=== PATIENT | male | born 1970 | race Caucasian/White ===

== ENCOUNTER 2017-12-14 08:52 | Inpatient (IN) | payer MEDICAID, MEDICARE, OTHER ==
--- NOTE | 2017-12-14 09:16 | C.PDOC ---
History Of Present Illness 47 yo male w/PMHx of bipolar, benzo abuse, transfer from [facility] after psych arranged, was accepted by . AT present time, pt AAO#3, appears comfortable, appropriate, denies nay active complaints. Time Seen by Provider: 12/14/17 08:54 Chief Complaint (Nursing): Psychiatric Evaluation History Per: Patient Past Medical History Reviewed: Historical Data, Nursing Documentation, Vital Signs Vital Signs: Last Vital Signs Temp 97.5 F L 12/15/17 06:39 Pulse 62 12/15/17 15:57 Resp 18 12/15/17 06:39 BP 102/62 12/15/17 15:57 Pulse Ox 97 12/14/17 19:04 - Medical History PMH: Bipolar Disorder, Depression Family History: States: No Known Family Hx - Social History Hx Tobacco Use: Yes Hx Alcohol Use: No Hx Substance Use: Yes - Immunization History Hx Tetanus Toxoid Vaccination: No Hx Influenza Vaccination: No Hx Pneumococcal Vaccination: No Review Of Systems Except As Marked, All Systems Reviewed And Found Negative. Constitutional: Negative for: Fever, Chills ENT: Negative for: Throat Pain Cardiovascular: Negative for: Chest Pain, Palpitations Respiratory: Negative for: Cough, Shortness of Breath, Wheezing Gastrointestinal: Negative for: Nausea, Vomiting, Abdominal Pain, Diarrhea Genitourinary: Negative for: Dysuria Musculoskeletal: Positive for: Back Pain Neurological: Negative for: Weakness, Numbness, Altered Mental Status, Headache , Dizziness Psych: Positive for: Depression, Suicidal ideation Physical Exam - Physical Exam Appears: Well, Non-toxic, No Acute Distress Skin: Normal Color, Warm, Dry, No Rash Head: Atraumatic, Normacephalic Eye(s): bilateral: PERRL Ear(s): Bilateral: Normal Nose: No Flaring, No Discharge Oral Mucosa: Moist, No Drooling Throat: No Erythema, No Drooling Neck: Trachea Midline, Supple Cardiovascular: Rhythm Regular, No Murmur, No JVD Respiratory: No Decreased Breath Sounds, No Accessory Muscle Use, No Stridor, No Wheezing Gastrointestinal/Abdominal: Soft, No Tenderness, No Distention, No Guarding Back: No CVA Tenderness Extremity: Normal ROM, No Deformity, No Swelling Neurological/Psych: Oriented x3, Normal Speech ED Course And Treatment O2 Sat by Pulse Oximetry: 97 Pulse Ox Interpretation: Normal Progress Note: On re-evaluation, pt is afebrile, hemodynamicaly stable. NOn- toxic. ENT: no acute findings. Lungs: CTA B/L, BS equal B/L. Abd: benign, (- ) guarding, (-) rebound. back: (-) CVA tenderness. Neuorlogicaly intact. Transfer papers review, including Blood work, CXR, EKG and appears normal, no acute finidngs noted. Pt is stable for admission to s/o with Dx: Depression, benzo abuse. Disposition - Disposition Disposition: HOSPITALIZED Disposition Time: 09:16 Condition: STABLE - Clinical Impression Clinical Impression: Moderate major depression, single episode, Benzodiazepine abuse
--- NOTE | 2017-12-14 11:05 | PCM.BM ---
<Sparkle Dennis - Last Filed: 12/14/17 11:03> Treatment Plan Problems - Problems identified on initial assessmt Depression Date Initiated: 12/14/17 Time Initiated: 11:03 Assessment reference: NA Status: Active Substance Abuse Date Initiated: 12/14/17 Time Initiated: 11:03 Assessment reference: NA Status: Active Treatment assets and liabiliti Patient Assests: adapts well, cooperative, educated, self-reliant, ADL independent, physically healthy, negotiates basic needs, cognitively intact Patient Liabilities: live alone (Lives with family), financial problems, substance abuse (Mara, Ecstasy), medical problems (None) - Milieu Protocol Maintain good personal hygiene: daily Encourage regular showers, daily Remind patient to perform daily oral care, daily Assist patient to perform ADL's (Self) Conduct patient checks and document Observation sheet: Q15 minutes (Yolande) Maintain personal safety: every shift Educate patient to report safety concerns to staff, every shift Monitor environment for contraband/sharps Medication safety: Monitor for expected outcome, potential side effects: every shift, Assess barriers to learning: every shift, Assess readiness for medication education: every shift <Kemi Hernández - Last Filed: 12/15/17 11:10> - Diagnosis (1) Bipolar disorder Status: Acute Interventions: 12/15/17 11:10 * Assess/adjust medications daily and /or as needed * See patient on an individual basis 7x/week to assess level of manic behaviors and stability * Discuss risks, benefits, side effects and alternatives of medications * (2) Ecstasy abuse Status: Acute Interventions: 12/15/17 11:11 * Assess 7x/week regarding severity of withdrawal * Educate regarding risks, benefits, side effects and alternatives of medications * Use Motivational Interviewing for abstinence * Use CBT for relapse prevention * Medication management for withdrawal symptoms * Encourage medication assisted treatment * <Viktoriya Hammonds - Last Filed: 12/15/17 17:22> Family Contact Family involvement: Patient does not wish Family/SO involvement Family contact: Patient declines to allow family contact at present - Goals for Treatment Patient goals for treatment: "I want to go back to my family." Discharge/Continuing Care - Education Needs Education Needs: Patient Medication, Patient Coping Skills, Patient Community resources - Discharge Discharge Criteria: Free of Suicidal thoughts, Normal sleep pattern, Ability to care for self, Reduction of target symptoms Discharge to:: Home - Treatment Team Participation Discussed with Family/SO: No Was Patient/Family/SO present at Treatment Team Meeting: Yes
--- NOTE | 2017-12-14 11:56 | PCM.PSYCH ---
Initial Psychiatric Evaluation - Initial Psychiatric Evaluation Type of Admission: Voluntary Legal Status: Capacity Chief Complaint (in patient's own words): CC: "I am hearing voices" History of Present Illness and Precipitating Events: Patient is a 47 year old male, who is unemployed, lives with his mother and brother, came to the because of depressed mood, paranoia and auditory hallucinations. Patient reports of using ecstasy pills for the past six months, which cause him to have visual hallucinations, insomnia and high energy. As per him, since past week, he is becoming increasingly paranoid and irritable. He reports of hearing voices and seeing shadows. He also reports of racing of thoughts, flight of ideas and poor concentration. He reports at times, depressed mood, feelings of hopelessness and helplessness. Patient reports depressive symptoms anhedonia, poor sleep and poor appetite. However, he denies any suicidal ideation or any homicidal ideation. PMH: Denied Current Medications: Active Medications Generic Name Dose Route Start Last Admin Trade Name Freq PRN Reason Stop Dose Admin Benztropine Mesylate 2 mg 12/14/17 11:47 Cogentin PO Q6 PRN Extra Pyramidal Symptoms Haloperidol 5 mg 12/14/17 11:47 Haldol PO Q8 PRN Moderate Agitation Pneumococcal Polyvalent Vaccine 0.5 ml 12/17/17 10:00 Pneumovax 23 Vaccine IM 12/17/17 10:01 .ONCE ONE Trazodone HCl 50 mg 12/14/17 22:00 Desyrel PO HS [facility] Past Psychiatric History - Past Psychiatric History Previous Treatment History: None Pertinent Medical Hx (Current Medical&Sleep Prob, Allergies): Allergies Allergy/AdvReac Type Severity Reaction Status Date / Time No Known Allergies Allergy Verified 12/14/17 08:58 No Known Home Med 12/14/17 Review of Systems - Review of Systems All systems: reviewed and no additional remarkable complaints except - Psychiatric Psychiatric: Anxiety, Difficulty Concentrating, Hallucinations, Irritability, Paranoia. absent: Homicidal Ideation, Suicidal Ideation Mental Status Examination - Personal Presentation Personal Presentation: Looks stated age - Affect Affect: Broad - Motor Activity Motor Activity: Psychomotor Agitation - Reliability in Providing Information Reliability in Providing Information: Poor, due to alteration in thoughts, Poor , due to altered mood - Speech Speech: Disorganized - Mood Mood: Anxious - Formal Thought Process Formal Thought Process: Hallucinations, Delusions, Paranoia, Loosening of associations - Hallucinations/Delusions Hallucinations: Visual, Auditory Delusions: Persecution - Obsessions/Compulsions Obsessions: No Compulsions: No - Cognitive Functions Orientation: Person, Place, Situation, Time Sensorium: Alert Attention/Concentration: Attentive Abstract Thinking: Shirley Estimate of Intelligence: Below average Judgement: Imparied, as evidence by: Poor judgement, Imparied, as evidence by: Lack of insight into illness - Risk Risk: Diminished functioning - Strength & Assets Inventory Strength & Assets Inventory: Family support, Cooperative DSM 5 DX - DSM 5 DSM 5 Diagnosis: 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
[2017-12-15] MEDS: Tramadol 25 mg PO PRN (21:34)
--- NOTE | 2017-12-16 13:59 | PCM.PYCHPN ---
Psychiatric Progress Note - Psychiatric Progress Note Patient seen today, length of contact: 15 min Patient Chief Complaint: CC: "I am hearing voices" Problems Identified/Issues Discussed: Patient seen and evaluated, chart reviewed and discussed with the nurse. Patient reports irritability and agitation. He reports racing of thoughts and flight of ideas and anxiety. He remained isolated and withdrawn. He reports of auditory hallucinations and persecutory delusions. However he remained calm and cooperative. He is taking medication and denies any side effects. Supportive therapy and psychoeducation were given Medication Change: Yes Medical Record Reviewed: Yes Mental Status Examination - Cognitive Function Orientation: Person, Place, Situation, Time Memory: Intact Attention: WNL Concentration: Poor Association: WNL Fund of Knowledge: Poor - Mood Mood: Anxious - Affect Affect: Broad - Speech Speech: Soft - Formal Thought Process Formal Thought Process: Hallucinations, Delusions, Paranoia, Loosening of associations - Suicidal Ideation Suicidal Ideation: No - Homicidal Ideation Homicidal Ideation: No Goal/Treatment Plan - Goal/Treatment Plan Need for Continued Stay: Severe depression anxiety, Failed transitioning Progress Toward Problem(s) and Goals/Treatment Plan: Bipolar disorder mixed severe with psychotic features -CBT -Psychoeducation -Supportive therapy, group therapy, individual therapy -Haldol 5 mg PO BID -Cogentin 1 mg PO BID -Trazodone 50 mg by mouth daily at bedtime Hallucinogen use disorder severe -Monitor signs and symptoms -Use [place] for abstinence - Smoking Cessation Smoking Cessation Initiated: No
[2017-12-16] MEDS: Divalproex 250 mg DR Tab PO SCH (18:44)
[2017-12-17] MEDS ORDERED: Pneumococcal 23-Valent Vaccine IM ONE (10:00)
[2017-12-17] MEDS: Divalproex 250 mg DR Tab PO SCH ×2 (10:08→18:22)
--- NOTE | 2017-12-17 10:37 | PCM.PYCHPN ---
Psychiatric Progress Note - Psychiatric Progress Note Patient seen today, length of contact: 15 min Patient Chief Complaint: CC: "I am felling little better.' Problems Identified/Issues Discussed: Patient seen and evaluated, chart reviewed and discussed with the nurse. Patient reports some improvement in irritability and agitation. He reports some improvement in the racing of thoughts and flight of ideas and anxiety. He remained isolated and withdrawn. He reports some improvement in the auditory hallucinations and persecutory delusions. However he remained calm and cooperative. He is taking medication and denies any side effects. Supportive therapy and psychoeducation were given Medication Change: Yes Medical Record Reviewed: Yes Mental Status Examination - Cognitive Function Orientation: Person, Place, Situation, Time Memory: Intact Attention: WNL Concentration: Poor Association: WNL Fund of Knowledge: Poor - Mood Mood: Anxious - Affect Affect: Broad - Speech Speech: Soft - Formal Thought Process Formal Thought Process: Delusions, Paranoia, Loosening of associations - Suicidal Ideation Suicidal Ideation: No - Homicidal Ideation Homicidal Ideation: No Goal/Treatment Plan - Goal/Treatment Plan Need for Continued Stay: Severe depression anxiety, Failed transitioning Progress Toward Problem(s) and Goals/Treatment Plan: Bipolar disorder mixed severe with psychotic features -CBT -Psychoeducation -Supportive therapy, group therapy, individual therapy -Haldol 5 mg PO BID -Cogentin 1 mg PO BID -Depakote 250 mg po BID -Trazodone 50 mg by mouth daily at bedtime Hallucinogen use disorder severe -Monitor signs and symptoms -Use [place] for abstinence - Smoking Cessation Smoking Cessation Initiated: No
[2017-12-17] MEDS: Tramadol 25 mg PO PRN (15:52)
[2017-12-18] MEDS: Tramadol 25 mg PO PRN ×2 (01:46→17:23)
[2017-12-18] MEDS: Divalproex 250 mg DR Tab PO SCH ×2 (10:11→17:21)
--- NOTE | 2017-12-18 13:23 | PCM.PYCHPN ---
Psychiatric Progress Note - Psychiatric Progress Note Patient seen today, length of contact: 16 min Medication Change: No Medical Record Reviewed: Yes Mental Status Examination - Cognitive Function Orientation: Person, Place, Situation, Time Memory: Intact Attention: WNL Concentration: Poor Association: WNL Fund of Knowledge: Poor - Mood Mood: Anxious - Affect Affect: Broad - Speech Speech: Soft - Formal Thought Process Formal Thought Process: Delusions, Paranoia, Loosening of associations - Suicidal Ideation Suicidal Ideation: No - Homicidal Ideation Homicidal Ideation: No Goal/Treatment Plan - Goal/Treatment Plan Need for Continued Stay: Severe depression anxiety, Failed transitioning
[2017-12-19 06:48] VITALS: RESP 18
[2017-12-19] MEDS: Divalproex 250 mg DR Tab PO SCH ×2 (09:13→17:26)
[2017-12-19] MEDS: Tramadol 25 mg PO PRN ×2 (10:43→19:50)
[2017-12-20 07:44] VITALS: BP 103/68; PULSE 61; TEMP 98.1; O2SAT 97
[2017-12-20] MEDS: Tramadol 25 mg PO PRN (08:45)
[2017-12-20] MEDS: Divalproex 250 mg DR Tab PO SCH (09:14)
--- NOTE | 2017-12-20 09:58 | PCM.PYCHDC ---
Mental Status Examination - Mental Status Examination Orientation: Person, Place, Situation, Time Memory: Intact Mood: Neutral Affect: Constricted Speech: Soft Attention: WNL Concentration: WNL Association: WNL Fund of Knowledge: WNL Formal Thought Process: No Impairment Description of patient's judgement and insight: good, fair Psychotic Thoughts and Behaviors: denies any AV Suicidal Ideation: No Current Homicidal Ideation?: No Discharge Summary - Discharge Note Reason for Hospitalization: Patient is a 47 year old male, who is unemployed, lives with his mother and brother, came to the because of depressed mood, paranoia and auditory hallucinations. Patient reports of using ecstasy pills for the past six months, which cause him to have visual hallucinations, insomnia and high energy. As per him, since past week, he is becoming increasingly paranoid and irritable. He reports of hearing voices and seeing shadows. He also reports of racing of thoughts, flight of ideas and poor concentration. He reports at times, depressed mood, feelings of hopelessness and helplessness. Patient reports depressive symptoms anhedonia, poor sleep and poor appetite. However, he denies any suicidal ideation or any homicidal ideation. Consultations:: List each consultation separately and include: 1. Reason for request. 2. Findings. 3. Follow-up Summary of Hospital Course include:: 1. Description of specific treatment plan utilized for patients during their course of treatmen. 2. Summarize the time- course for resolution of acute symptoms and/or regressed behaviors. 3. Describe issues identified and worked on during hospitalization. 4. Describe medication utilized. 5. Describe medical problems identified and treated. 6. Reassessment of suicide risk Summary of Hospital Course: During the course of his stay, patient (pt) started progressively improving and he no longer remained irritable, depressed, and suicidal. His mood and anxiety symptoms were improved and he started attending groups and meetings and started socializing. Patient denied any feelings of hopelessness, helplessness, and worthlessness, denied any problem with the sleep or appetite, denied suicidal ideation or homicidal ideation. Pt denied any auditory or visual hallucinations. He denied any withdrawal symptoms. Some changes were made in his current medications and patient was discharged on following medications. He tolerated these medications very well and denied any side effects. He was discharged to the [facility] Partial Care Program. - Diagnosis (1) Bipolar disorder Status: Acute (2) Ecstasy abuse Status: Acute - Final Diagnosis (DSM 5) Condition upon Discharge: STABLE DSM 5: Bipolar disorder mixed severe with psychotic features Hallucinogen use disorder severe Disposition: HOME/ ROUTINE Follow-up Treatment Plan: Education: Pt was educated and counseled about the risks and benefits of taking and not taking medications. Pt was educated and counseled about the risks of drinking and abusing drugs. Pt was educated and counseled to go to the ER or call 911 if pt develop suicidal ideation or homicidal ideation, worsening of symptoms or severe side effects of the meds. Prescriptions/Medication Reconciliation: Divalproex [Depakote DR] 250 mg PO BID #60 tcp traMADol [Ultram] 50 mg PO DAILY #5 tab traZODone [Desyrel] 100 mg PO HS #30 tab - Smoking Cessation Smoking Cessation Medication prescribed: No - Antipsychotic Medications Pt discharged on 2 or more routine antipsychotic medications: No
[2017-12-20] MEDS ORDERED: Tramadol 25 mg PO SCH (18:00)
== END 2017-12-20 12:45 | disposition home or self-care (01) | DRG 430 ==
LOC: C.ER 08:52 → C.5E 09:35
PROVIDERS: ADMIT Psychiatry & Neurology Psychiatry; ATTEND Psychiatry & Neurology Psychiatry
PROC: GZHZZZZ Group Psychotherapy (ICD-10-PCS; principal; 2017-12-14)
PROC: GZ56ZZZ Individual Psychotherapy, Supportive (ICD-10-PCS; 2017-12-14)
DX: F31.64 Bipolar disorder, current episode mixed, severe, with psychotic features (principal); F13.10 Sedative, hypnotic or anxiolytic abuse, uncomplicated; F41.9 Anxiety disorder, unspecified; G47.00 Insomnia, unspecified; F17.210 Nicotine dependence, cigarettes, uncomplicated; F19.10 Other psychoactive substance abuse, uncomplicated